=== PATIENT | female | born 1970 | race Caucasian/White ===

== ENCOUNTER → 2016-03-21 | Outpatient (CLI) | payer OTHER ==
[~2016-03-21] MED LIST: ASCO1CAP3 PO; B-COCAP2 PO; CHOL1000 PO; CLON0.5T3 PO; FLUT0.15 NAE; LEVO75TA5 PO; MELATAB2 PO; METO25TA3 PO; NAPR500T3 PO; OXYC5TAB PO; PHEN-876 PO; PHEN95TA10 PO
[2016-03-21 10:02] LABS: THYROID STIMULATING HORMONE 1.01 uIu/ml (0.300-4.500)
== END | disposition home or self-care (01) ==
LOC: C.LAB 08:15
PROVIDERS: ATTEND Internal Medicine Endocrinology, Diabetes & Metabolism
DX: G62.9 Polyneuropathy, unspecified (principal); R89.9 Unspecified abnormal finding in specimens from other organs, systems and tissues; E03.9 Hypothyroidism, unspecified

== ENCOUNTER → 2016-07-10 | Outpatient (CLI) | payer OTHER ==
[~2016-07-10] MED LIST changes: -PHEN-876 PO
--- NOTE | 2016-07-11 12:58 | MAMMOGRAPHY REPORT ---
BILATERAL DIGITAL SCREENING MAMMOGRAM TOMOSYNTHESIS WITH CAD: 07/10/2016 CLINICAL HISTORY: Routine screening. Patient has no complaints. TECHNIQUE: Breast tomosynthesis in addition to standard 2D mammography was performed. Current study was also evaluated with a Computer Aided Detection (CAD) system. COMPARISON: Comparison is made to exams dated: 06/28/2015 mammogram - [facility], 02/17/2013 mammogram, 01/16/2012 mammogram, and 10/18/2010 mammogram. BREAST COMPOSITION: The tissue of both breasts is extremely dense, which lowers the sensitivity of mammography. FINDINGS: There are stable diffuse bilateral microcalcifications. No new suspicious mass, architec tural distortion or cluster of microcalcifications is seen. IMPRESSION: ACR BI-RADS CATEGORY 2: BENIGN There is no mammographic evidence of malignancy. A 1 year screening mammogram is recommended. The p atient will receive written notification of the results. Approximately 10% of breast cancers are not detected with mammography. A negative mammographic repor t should not delay biopsy if a clinically suggestive mass is present. Pati Lomas M.D. ay/:07/10/2016 17:35:06 Frame Bender: Tali VACA(R)(M)(BD), [facility] letter sent: Normal 1/2 BI-RADS Code: ACR BI-RADS Category 2: Benign
== END | disposition home or self-care (01) ==
LOC: C.MAMM 10:28
PROVIDERS: ATTEND Internal Medicine
DX: Z12.31 Encounter for screening mammogram for malignant neoplasm of breast (principal)

== ENCOUNTER → 2016-08-02 | Outpatient (CLI) | payer OTHER ==
[2016-08-02 12:22] LABS: BASO % 0.6 %; BASO ABS # 0.05 K/uL (0-0.2); COMPLETE YES; EOS % 1.9 %; HEMATOCRIT 41.8 % (37-47); IG% 0.6 %; LYMPH % 29.4 %; LYMPH ABS # 2.31 K/uL (1.2-3.4); MEAN CELL VOLUME 92.7 fL (80-100); MEAN CORPUSCULAR HEMOGLOBIN 30.8 pg (25-34); MEAN CORPUSCULAR HGB CONC 33.3 g/dl (32-36); MEAN PLATELET VOLUME 10.1 fL (7.4-10.4); MONO % 8.5 %; PLATELET COUNT 252 K/uL (130-400); RED BLOOD COUNT 4.51 M/uL (4.2-5.4); WHITE BLOOD COUNT 7.86 K/uL (4.8-10.8)
[2016-08-02 13:18] LABS: ALT/SGPT 19 U/L (12-78); AST/SGOT 12 U/L (15-37); BLOOD UREA NITROGEN 16 mg/dl (7-18); BUN/CREATININE RATIO 19.8 (10-20); CARBON DIOXIDE 25 mmol/L (21-32); CHLORIDE 106 mmol/L (98-107); CHOLESTEROL 175 mg/dl (0-200); CREATININE 0.81 mg/dl (0.60-1.20); GLUCOSE 90 mg/dl (70-99); POTASSIUM 3.9 mmol/L (3.5-5.1); SODIUM 140 mmol/L (136-145); TRIGLYCERIDES 202 mg/dl (0-150); VERY LOW DENSITY LIPOPROT CALC 40 mg/dl
[2016-08-02 13:21] LABS: ALB/GLOB RATIO 1.1 (0.9-2); ALKALINE PHOSPHATASE 81 U/L (45-117); CHOLESTEROL/HDL RATIO 5.1; HDL CHOLESTEROL 34 mg/dl; LDL CHOLESTEROL CALCULATED 101 mg/dl
[2016-08-03 16:02] LABS: LEAD BLOOD LESS THAN 1 MCG/DL (0-9)
== END | disposition home or self-care (01) ==
LOC: C.LABBFT 08:31
PROVIDERS: ATTEND Internal Medicine
DX: M79.1 Myalgia (principal); E78.5 Hyperlipidemia, unspecified

== ENCOUNTER → 2016-08-15 | Outpatient (CLI) | payer OTHER ==
--- NOTE | 2016-08-15 10:15 | DIAGNOSTIC IMAGING REPORT ---
SI JOINTS 3 OR MORE VIEWS CLINICAL HISTORY: M25.50 Arthralgia of multiple [id number] pain COMPARISON STUDY: None FINDINGS: Normal study. No evidence of bony ankylosis. IMPRESSION: Normal study. Electronically signed by: Beau Bowers M.D. 08/15/2016 10:13 AM Dictated Date/Time: 08/15/2016 10:11 AM
--- NOTE | 2016-08-15 10:17 | DIAGNOSTIC IMAGING REPORT ---
RIGHT ANKLE 3 VIEWS CLINICAL HISTORY: Right ankle pain. Multifocal arthralgias. FINDINGS: 3 views of the right ankle are obtained. No prior studies are available for comparison at the time of dictation. The skeletal structures are well mineralized. No fracture is seen. The ankle mortise is intact. No erosive change is identified. There is no joint effusion. The overlying soft tissues are within normal limits. A tiny plantar calcaneal enthesophyte is observed. IMPRESSION: Unremarkable radiographic assessment of the right ankle. Electronically signed by: Anand Johnson M.D. 08/15/2016 10:15 AM Dictated Date/Time: 08/15/2016 10:15 AM
[2016-08-15 10:53] LABS: THYROID STIMULATING HORMONE 0.482 uIu/ml (0.300-4.500)
[2016-08-20 12:17] LABS: ANTI-CENTROMERE AB <1.0 NEG AI (<1.0 NEG); ANTI-SS-A <1.0 NEG AI (<1.0 NEG); ANTI-SS-B <1.0 NEG AI (<1.0 NEG); DNA ds CRITHIDIA NEGATIVE (NEGATIVE); HLA-B27** TC 528X NEGATIVE (NEGATIVE); Sm Antibody <1.0 NEG AI (<1.0 NEG); VITAMIN B6** TC 926 32.2 ng/mL (2.1-21.7)
== END | disposition home or self-care (01) ==
LOC: C.RAD1850 09:25
PROVIDERS: ATTEND Internal Medicine Rheumatology
DX: M25.50 Pain in unspecified joint (principal); E06.3 Autoimmune thyroiditis; M62.81 Muscle weakness (generalized); M79.1 Myalgia

== ENCOUNTER → 2016-10-29 | Outpatient (CLI) | payer OTHER | END | disposition home or self-care (01) | LOC: C.LAB1850 13:12 | PROVIDERS: ATTEND Internal Medicine Endocrinology, Diabetes & Metabolism | DX: E55.9 Vitamin D deficiency, unspecified (principal); R26.89 Other abnormalities of gait and mobility ==

== ENCOUNTER → 2016-11-02 | Outpatient (CLI) | payer OTHER | END | disposition home or self-care (01) | LOC: C.LABBFT 09:19 | PROVIDERS: ATTEND Internal Medicine | DX: M79.1 Myalgia (principal) ==

== ENCOUNTER → 2017-02-13 | Outpatient (CLI) | payer OTHER ==
[~2017-02-13] MED LIST changes: -CLON0.5T3 PO; +KLN/5 PO; -METO25TA3 PO; +METO25TA4 PO; +NAPR-1231 PO; -NAPR500T3 PO
== END | disposition home or self-care (01) ==
LOC: C.LABBFT 13:20
PROVIDERS: ATTEND Internal Medicine Endocrinology, Diabetes & Metabolism
DX: E03.9 Hypothyroidism, unspecified (principal)

== ENCOUNTER 2018-10-02 06:02 | Inpatient (IN) ==
--- NOTE | 2018-09-09 14:43 | Anesthesiology Consultation ---
Date of Service September 09, 2018 Assessment & Plan (1) Encounter for pre-operative examination: 11/2015 cystoscopy = MAC 3, ETT 7.0, grade view I. Atraumatic, one attempt, cords and pharynx clear. Chart Review Chart Review: Acceptable Risk for Surgery and Patient NOT seen in Pre Admission Testing History Surgery Operation Date: 10/02/18 07:30 Proposed Procedures p L5-S1 Posterior Lumbar Interbody Fusion - Madhu Weiner, Height/Weight Height: 5 ft 10.75 in Weight: 68.039 kg Allergies Allergy/AdvReac Type Severity Reaction Status Date / Time Cipro Allergy Unknown ABD Unverified 11/18/15 10:31 CRAMPING, HEARTBURN ciprofloxacin Allergy Unknown ABD Verified 08/06/18 17:21 CRAMPING, HEARTBURN varenicline Allergy Unknown "PSYCHOSIS" Verified 08/06/18 17:21 STATE OF MIND alprazolam Allergy DIDN'T Verified 09/09/18 13:42 FEEL RIGHT gentian vance Allergy ATE INSIDE Verified 09/09/18 13:42 OF BLADDER fluoxetine AdvReac Severe ACCENTUATED Verified 08/06/18 17:21 EMOTION-PLEASANT OR SAD paroxetine AdvReac Unknown DIDN'T Verified 09/09/18 13:42 FEEL RIGHT sertraline AdvReac Unknown DIDN'T Verified 09/09/18 13:42 FEEL RIGHT Medications Home Medications Medication Instructions Recorded Confirmed Last Taken ascorbic acid (vitamin C) [Vitamin 1 g PO QAM 09/09/18 09/09/18 Unknown C] black cohosh 540 mg PO QAM 09/09/18 09/09/18 Unknown cholecalciferol (vitamin D3) 2,000 unit PO QAM 09/09/18 09/09/18 Unknown [Vitamin D3] clonazepam 0.5 mg PO QPM 09/09/18 09/09/18 Unknown duloxetine 60 mg PO QPM 09/09/18 09/09/18 Unknown levothyroxine 75 mcg PO QAM 09/09/18 09/09/18 Unknown melatonin 5 mg PO HS 09/09/18 09/09/18 Unknown metoprolol succinate [Toprol XL] 12.5 mg PO QPM 09/09/18 09/09/18 Unknown tk-[id number]-Ca carb-vit K 1 tab PO QAM 09/09/18 09/09/18 Unknown [Women's Multivitamin] vitamin E 400 unit PO QPM 09/09/18 09/09/18 Unknown Past Medical History Medical History Trochanteric bursitis of left hip (Resolved) 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 Tingling of both feet D/T BACK ISSUE Vaginal polyp Past Family History Family History Grandfather (Maternal) Family history of diabetes mellitus Grandfather (Paternal) Family history of diabetes mellitus Grandmother (Paternal) Family history of diabetes mellitus Grandmother (Maternal) Family history of diabetes mellitus Mother Family history of diabetes mellitus Past Surgical History Surgical History H/O tubal ligation (Resolved) History of back surgery History of exploratory laparotomy History of partial hysterectomy Hx of bladder repair surgery Hx of dilation and curettage MULTIPLE Hx of right knee surgery BURSA SAC Social History Smoking Status: Current every day smoker tobacco type: cigarettes Smoking cigarettes per day: 10 Do You Dip or Chew Tobacco: No Hx Alcohol Use: Yes Alcohol type: beer alcohol intake frequency: other Alcohol Intake Frequency Comment: SOCIALLY Hx Substance Use: No Testing Laboratory Results 08/22/18 WBC: 9.14 H/H: 13.8/40.3 PLATELETS: 280 08/30/18 SODIUM: 139 POTASSIUM: 3.8 CHLORIDE: 106 CO2: 27 BUN: 23 CREATININE: 0.75 GLUCOSE: not reported 08/04/18 TSH: 0.241
--- NOTE | 2018-10-01 12:35 | History and Physical Report ---
DATE OF ADMISSION: 10/02/2018 CHIEF COMPLAINT: Back and lower extremity difficulty, inability to ambulate and stand comfortably. HISTORY OF PRESENT ILLNESS: Isabela is a pleasant young lady. She is 48 years of age. She has a degenerative segment of spine of significant compromise and instability. We are scheduling her for a PLIF procedure, L5-S1. PAST MEDICAL HISTORY: Positive for thyroid disease, anxiety. PAST SURGICAL HISTORY: Bladder surgery, uterine repair, partial hysterectomy. FAMILY HISTORY: Diabetes. SOCIAL HISTORY: . Minimal alcohol. Moderate tobacco. Moderately active. REVIEW OF SYSTEMS: Negative for fevers, sweats, chills. Positive for fatigue. Positive for sinus issues. Denies chest pain, palpitation. No asthma, wheezing, shortness of breath. No nausea or vomiting. She admits to numbness, back pain, weakness, cramping, and muscle pain. MEDICATIONS: Levothyroxine, Toprol, ibuprofen, Cross, Flexeril. PHYSICAL EXAMINATION: GENERAL: She is 5 feet 10 inches, 150 pounds. She is in moderate distress. VITAL SIGNS: Blood pressure 130/80, pulse 80, respiratory rate 16. HEENT: Pupils react to light and accommodation. Ear, nose and throat clear. CARDIAC: Normal S1, S2, no S3. LUNGS: Clear to auscultation. No rales, rhonchi, wheezing. ABDOMEN: Soft and nontender. NEUROLOGIC: She is intact with no gross neurological deficit or upper motor neuron issues. She has profound decreased range of motion, flexion and extension of the spine. Pain with percussion and gait abnormality. ASSESSMENT: Severely degenerative segment, L5-S1. PLAN: Includes a PLIF procedure, L5-S1, lumbar spine.
[~2018-10-02 06:02] MED LIST changes: +ACETAMINOPHEN 1000 MG/100 ML IV IV SCH; -ASCO1CAP3 PO; -B-COCAP2 PO; +CEFAZOLIN 2000MG 2,000 MG/15 ML SYR IV SCH; -CHOL1000 PO; -FLUT0.15 NAE; -KLN/5 PO; -LEVO75TA5 PO; +LR 15ML/HR IV SCH; -MELATAB2 PO; -METO25TA4 PO; -NAPR-1231 PO; -OXYC5TAB PO; -PHEN95TA10 PO; +SODIUM CHLORIDE 0.9% 1000ML IV SCH
[2018-10-02] MEDS ORDERED: MIDAZOLAM HCL 1 MG/ML 2ML VIAL ONE (06:49)
[2018-10-02] MEDS ORDERED: HYDROmorphone INJ 2 MG/ML SYR/VIAL ONE (06:49)
[2018-10-02] MEDS ORDERED: fentaNYL citrate 100 MCG/2 ML VIAL ONE (06:49)
[2018-10-02] MEDS ORDERED: BACITRACIN INJ 50,000 UNIT VIAL ONE (06:58)
[2018-10-02] MEDS ORDERED: VANCOMYCIN HCL 1000MG/20ML VIAL ONE (06:58)
[2018-10-02] MEDS ORDERED: GELATIN SPONGE SZ 100 ONE (06:58)
[2018-10-02] MEDS ORDERED: BUPIVACAINE/EPINEPHRINE 0.5% MPF 1:200,000 30 ML VIAL ONE (06:58)
[2018-10-02] MEDS ORDERED: THROMBIN FOR SOLN 20000 UNIT KIT ONE (06:58)
--- NOTE | 2018-10-02 07:10 | History & Physical Bridge Note ---
Date of Service October 02, 2018 History & Physical Bridge Note I have examined the patient, reviewed the History & Physical and in the interval since the performance of the History & Physical I have noted the following changes of clinical significance: no changes noted
[2018-10-02] MEDS ORDERED: LIDOCAINE HCL 2% 2 ML VIAL/AMP(20MG/ML) INFIL ONE (07:59)
[2018-10-02] MEDS ORDERED: GLYCOPYRROLATE 0.2 MG/ML VIAL ONE (07:59)
[2018-10-02] MEDS ORDERED: ROCURONIUM BROMIDE 10 MG/ML 5 ML VIAL ONE (07:59)
[2018-10-02] MEDS ORDERED: PROPOFOL IV EMULSION 10 MG/ML 20 ML VIAL IV ONE (07:59)
[2018-10-02] MEDS ORDERED: ePHEDrine sulfate 50 MG/ML SYR ONE (07:59)
[2018-10-02] MEDS ORDERED: NEOSTIGMINE METHYLSULFATE 5 MG/5 ML SYR ONE (07:59)
[2018-10-02] MEDS ORDERED: DEXAMETHASONE SOD INJ 4 MG/ML VIAL ONE (07:59)
[2018-10-02] MEDS ORDERED: ONDANSETRON INJ 2 MG/ML 2 ML VIAL ONE (07:59)
[2018-10-02] MEDS ORDERED: LARYING-O-JET KIT (LTA) ONE (08:09)
[2018-10-02] MEDS ORDERED: NALOXONE HCL 0.4 MG/1 ML VIAL/CARP IV PRN ×2 (08:33→10:55)
[2018-10-02] MEDS ORDERED: LABETALOL HCL IV 5 MG/ML 20ML IV PRN (08:33)
[2018-10-02] MEDS ORDERED: PROMETHAZINE HCL 12.5 MG in SODIUM CHLORIDE 0.9% 50 ML IV PRN ×2 (08:33→10:55)
[2018-10-02] MEDS ORDERED: ONDANSETRON INJ 2 MG/ML 2 ML VIAL IV PRN ×2 (08:33→10:55)
[2018-10-02] MEDS ORDERED: ATROPINE SULFATE 0.1 MG/ML 10ML SYR IV PRN (08:33)
[2018-10-02] MEDS ORDERED: FLUMAZENIL 0.1 MG/1 ML 10 ML VIAL IV PRN (08:33)
[2018-10-02] MEDS ORDERED: ePHEDrine sulfate 50 MG/ML AMP IV PRN (08:33)
--- NOTE | 2018-10-02 09:28 | Fluoroscopy Report ---
FL spine 1V any level HISTORY: Spinal fusion.. FLUOROSCOPY TIME: 4 seconds. FINDINGS: Intraoperative fluoroscopy was provided for the lumbar spine. 1 fluoroscopic spot images we re obtained. IMPRESSION: Fluoroscopy provided for a L5-S1 laminectomy and fusion. The above report was generated using voice recognition software. It may contain grammatical, syntax or spelling errors. Electronically signed by: Beau Bowers M.D. 10/02/2018 9:27 AM
--- NOTE | 2018-10-02 09:33 | Post Operative Brief Note ---
PG Immediate Post Op with CF Date of Surgery October 02, 2018 Pre & Post Diagnosis Operation Date: 10/02/18 07:30 Pre-Op Diagnosis: Severely degenerative segment, L5-S1 Post-Op Diagnosis: Severely degenerative segment, L5-S1 Procedure Operation Date: 10/02/18 07:30 Actual Procedures p L5-S1 Posterior Lumbar Interbody Fusion(Not Applicable) - Madhu Weiner DO Surgeon Madhu Weiner DO Stress Test Technician sammy Estimated Blood Loss 100 Findings Consistent with Post-Op Diagnosis Specimens Specimen Description: none per surgeon Drains Mobley Catheter (16 amharic 10ml) and Hemovac Drain Disposition Accompanied Patient To Recovery: Yes Overlapping Procedure I was immediately available: during the entire case.
[2018-10-02] MEDS: HYDROmorphone INJ 1 MG/ML SYRINGE IV PRN ×8 (09:46→10:21)
--- NOTE | 2018-10-02 10:31 | Anesthesiology Progress Note ---
Date of Service October 02, 2018 Anesthesia Post Procedure Vital Signs Vital Signs: Temp Pulse Pulse Resp BP Pulse Ox 10/02/18 10:20 80 17 140/74 100 10/02/18 10:10 93 H 12 140/80 100 10/02/18 10:00 93 H 12 151/81 H 100 10/02/18 09:50 97 H 14 147/88 H 100 10/02/18 09:41 36.9 C 113 H 16 144/73 H 100 10/02/18 06:27 36.6 C 74 18 139/78 97 Pain Intensity Back: Pain Intensity: 4 Transfer of Care Handoff Completed per policy Notes Mental Status: alert / awake / arousable Patient Amnestic to Procedure: Yes Nausea / Vomiting: adequately controlled Pain: adequately controlled Airway Patency, RR, SpO2: stable & adequate BP & HR: stable & adequate Hydration State: stable & adequate Anesthetic Complications: no major complications apparent
--- NOTE | 2018-10-02 10:50 | Operative Report ---
DATE OF OPERATION: 10/02/2018 PREOPERATIVE DIAGNOSIS: Degenerative disc at L5-S1, instability, L5-S1. POSTOPERATIVE DIAGNOSIS: Degenerative disc at L5-S1, instability, L5-S1. PROCEDURES: Included: 1. Decompression, laminectomy, foraminotomy, partial facetectomy and decompression of neural elements at L5-S1. 2. Pedicle screw instrumentation, L5-S1 lumbar spine. 3. Posterior lumbar interbody fusion on a PLIF procedure, L5-S1. SURGEON: Madhu Weiner DO METALLURGICAL ENGINEERING TEACHER: Coy Robin PA-C. COMPLICATIONS: Zero. DESCRIPTION OF PROCEDURE: The patient was identified in the preop holding area and marked. We also did a formal bridge note. The patient was brought to the operating room, a general intubated anesthetic provided to the patient, placed prone, scrubbed, prepped and draped sterile. I made a skin incision, fascial incision, dissecting the soft tissue meticulously down to the L5-S1 interspace. We dissected the soft tissue in same plane. We got all bleeders. There were no issues with bleeding. We then decompressed the neural elements. We did a complete laminectomy at L5, foraminotomies and partial facetectomies at L5-S1 level. We retracted the nerve root over L5-S1 bilaterally, so we did a complete discectomy from both sides. We prepared this for interbody device. We then safely got pedicle screws into L5-S1 bilaterally. We completed the PLIF procedure with an interbody device at L5-S1. It was approximately 8 mm in height, 8 mm wide, 22 mm in depth. These were placed in bilaterally. I first backfilled the interspace with some bone graft. We locked down the construct, irrigated thoroughly, bone grafted out over the transverse processes. We placed some Gelfoam over the dura, vancomycin powder, Hemovac drain, closed with 1 Vicryl 2-0 and 3-0 nylon on the skin. Sterile dressings applied. The patient returned to recovery room in satisfactory stable. There were no complications. Sponge and needle count correct at the close of the procedure. IMPLANTS USED: By the [employer]. Bone graft used was morcellized autograft from the patient's laminectomy and demineralized bone matrix. I attest to the content of the Intraoperative Record and any orders documented therein. Any exception s are noted below.
[2018-10-02] MEDS ORDERED: METOCLOPRAMIDE HCL INJ 5 MG/ML 2 ML VIAL IV PRN (10:55)
[2018-10-02] MEDS ORDERED: DO NOT ADMINISTER FLU VACCINE PRN (10:55)
[2018-10-02] MEDS ORDERED: BISACODYL 10 MG SUPP PR PRN (10:55)
[2018-10-02] MEDS ORDERED: FAMOTIDINE 20 MG TAB PO PRN (10:55)
[2018-10-02] MEDS ORDERED: DO NOT ADMINISTER PNEUMOCOCCAL VACCINE PRN (10:55)
[2018-10-02] MEDS ORDERED: MAGNESIUM HYDROXIDE SUSP 30 ML UDC PO PRN (10:55)
[2018-10-02] MEDS ORDERED: ONDANSETRON 4 MG TAB PO PRN (10:55)
[2018-10-02] MEDS ORDERED: ALUMINUM/MAGNESIUM SUSP 30 ML UDC PO PRN (10:55)
[2018-10-02] MEDS ORDERED: ACETAMINOPHEN 1,000 MG/100 ML VIAL IV PRN (10:55)
[2018-10-02] MEDS ORDERED: SOD PHOSPHATE/SOD BIPHOSPHATE ENEMA 132 ML BTL PR PRN (10:55)
[2018-10-02] MEDS: SODIUM CHLORIDE 0.9% 1000ML 1,000 ML IV SCH (11:19)
[2018-10-02] MEDS: HYDROmorphone INJ 0.5 MG/0.5 ML SYR IV PRN ×3 (11:19→21:34)
[2018-10-02] MEDS: OXYCODONE HCL IR 5 MG TAB (IMMEDIATE RELEASE) PO PRN ×2 (14:21→20:04)
[2018-10-02] MEDS: CEFAZOLIN 2000MG 2,000 MG/15 ML SYR IV SCH ×2 (16:02→23:54)
[2018-10-02] MEDS: METOPROLOL SUCC 25MG EXT REL TAB PO SCH (20:05)
[2018-10-02] MEDS: TOCOPHERYL, DL-ALPHA 400 UNITS CAP PO SCH (20:05)
[2018-10-02] MEDS: DOCUSATE SODIUM/SENNA 50/8.6MG TAB PO SCH (20:05)
[2018-10-02] MEDS: DULOXETINE HCL 60 MG CAP PO SCH (20:05)
[2018-10-02] MEDS: clonazePAM 0.5 MG TAB PO PRN (20:06)
[2018-10-02] MEDS ORDERED: NON-FORMULARY MEDICATION (Melatonin 5 MG) PO SCH (21:00)
[2018-10-03] MEDS: SODIUM CHLORIDE 0.9% 1000ML 1,000 ML IV SCH (00:01)
[2018-10-03] MEDS: HYDROmorphone INJ 0.5 MG/0.5 ML SYR IV PRN ×2 (00:53→07:44)
[2018-10-03] MEDS: LEVOTHYROXINE SODIUM 75 MCG TABLET PO SCH (05:39)
[2018-10-03] MEDS: POLYETHYLENE (MIRALAX) 17 GM PACK PO SCH ×5 (05:39→23:40)
[2018-10-03] MEDS: OXYCODONE HCL IR 5 MG TAB (IMMEDIATE RELEASE) PO PRN ×4 (05:45→19:28)
[2018-10-03] MEDS: CYCLOBENZAPRINE HCL 10 MG TAB PO PRN ×2 (07:44→19:28)
[2018-10-03] MEDS: CEROVITE ADV FORMULA TAB PO SCH (07:47)
[2018-10-03] MEDS: CHOLECALCIFEROL 1,000 UNITS TAB PO SCH (07:47)
[2018-10-03] MEDS: ASCORBIC ACID 500 MG TAB PO SCH (07:47)
[2018-10-03] MEDS ORDERED: BLACK COHOSH 540 MG PO SCH (09:00)
--- NOTE | 2018-10-03 10:59 | Anesthesiology Progress Note ---
Date of Service October 03, 2018 Anesthesia Post Procedure Vital Signs Vital Signs: Temp Pulse Pulse Pulse Resp BP BP 10/03/18 07:38 37.0 C 58 L 16 114/71 10/03/18 03:43 37.0 C 61 16 106/62 10/02/18 22:17 36.9 C 85 16 109/66 10/02/18 19:21 36.9 C 65 16 108/61 10/02/18 15:48 36.5 C 78 16 111/62 10/02/18 14:28 84 18 115/72 10/02/18 12:55 77 19 102/61 10/02/18 11:59 84 18 114/69 10/02/18 11:25 37 C 96 H 16 129/74 Pulse Ox 10/03/18 07:38 98 10/03/18 03:43 96 10/02/18 22:17 94 10/02/18 19:21 97 10/02/18 15:48 97 10/02/18 14:28 94 10/02/18 12:55 100 10/02/18 11:59 98 10/02/18 11:25 93 Pain Intensity Back: Pain Intensity: 8 Notes Mental Status: alert / awake / arousable and participated in evaluation Patient Amnestic to Procedure: Yes Nausea / Vomiting: adequately controlled Pain: adequately controlled Airway Patency, RR, SpO2: stable & adequate BP & HR: stable & adequate Hydration State: stable & adequate Anesthetic Complications: no major complications apparent
--- NOTE | 2018-10-03 12:30 | Anesthesiology Progress Note ---
Date of Service October 03, 2018 Anesthesia Post Procedure Vital Signs Vital Signs: Temp Pulse Pulse Pulse Resp BP BP 10/03/18 07:38 37.0 C 58 L 16 114/71 10/03/18 03:43 37.0 C 61 16 106/62 10/02/18 22:17 36.9 C 85 16 109/66 10/02/18 19:21 36.9 C 65 16 108/61 10/02/18 15:48 36.5 C 78 16 111/62 10/02/18 14:28 84 18 115/72 10/02/18 12:55 77 19 102/61 Pulse Ox 10/03/18 07:38 98 10/03/18 03:43 96 10/02/18 22:17 94 10/02/18 19:21 97 10/02/18 15:48 97 10/02/18 14:28 94 10/02/18 12:55 100 Pain Intensity Back: Pain Intensity: 8 Transfer of Care Handoff Completed per policy Notes Mental Status: alert / awake / arousable Patient Amnestic to Procedure: Yes Nausea / Vomiting: adequately controlled Pain: adequately controlled Airway Patency, RR, SpO2: stable & adequate BP & HR: stable & adequate Hydration State: stable & adequate Neuraxial Anesthesia: was administered Anesthetic Complications: Pt Satisfied with anesthetic care
[2018-10-03] MEDS: DULOXETINE HCL 60 MG CAP PO SCH (20:05)
[2018-10-03] MEDS: clonazePAM 0.5 MG TAB PO PRN (20:05)
[2018-10-03] MEDS: METOPROLOL SUCC 25MG EXT REL TAB PO SCH (20:05)
[2018-10-03] MEDS: TOCOPHERYL, DL-ALPHA 400 UNITS CAP PO SCH (20:06)
[2018-10-03] MEDS: DOCUSATE SODIUM/SENNA 50/8.6MG TAB PO SCH (20:06)
[2018-10-04] MEDS: POLYETHYLENE (MIRALAX) 17 GM PACK PO SCH (05:33)
[2018-10-04] MEDS: LEVOTHYROXINE SODIUM 75 MCG TABLET PO SCH (05:35)
[2018-10-04] MEDS: ASCORBIC ACID 500 MG TAB PO SCH (08:35)
[2018-10-04] MEDS: CEROVITE ADV FORMULA TAB PO SCH (08:35)
[2018-10-04] MEDS: CHOLECALCIFEROL 1,000 UNITS TAB PO SCH (08:35)
--- NOTE | 2018-10-06 07:47 | Discharge Summary ---
She is status post 2 days from a posterior lumbar interbody fusion L5-S1. She has some abdominal discomfort which is common, but she is alert and oriented, taking p.o. Minimal complaints of pain. She had had an uneventful course, ambulatory. Vital signs stable. No chest pain, shortness of breath, or extremity issues. ASSESSMENT: Status post posterior lumbar interbody fusion procedure lumbar spine. PLAN: She will be discharged home this morning in improved stable condition. We will see her back in the office in 10 days. She has instructions, precautions on the chart.
== END 2018-10-04 11:08 | disposition home or self-care (01) | DRG 455 ==
LOC: ASU 06:02 → 3E 09:43